=== PATIENT | female | born 1965 | race Caucasian/White ===

== ENCOUNTER → 2020-06-24 | Outpatient (CLI) | payer MEDICARE ==
[~2020-06-24] MED LIST: ALBU90OI61 INH; CALCA500CH PO; CITA20 PO; DOXY100 PO; GUAI600T33 PO; LEVSOD75 PO; MELO7.5 PO; METO50 PO; OMEP20ER PO; PRED10 PO; SERT50 PO; Synthroid175 MCG PO; VARE1 PO; Ventolin/Prove6.7 GM INH; Zofran Odt4 MG SL
[2020-06-24 15:57] LABS: Free Thyroxine 0.99 ng/dL (0.70-1.60); Thyroid Stimulating Hormone 4.28 uIU/mL (0.360-4.800)
== END | disposition home or self-care (01) ==
LOC: LAB 14:18 → LAB SHORT 14:18
PROVIDERS: Nurse Practitioner Family
DX: E07.9 Disorder of thyroid, unspecified (principal); R53.83 Other fatigue; R00.2 Palpitations; R51 Headache
CPT/HCPCS: 84439; 84443